=== PATIENT | male | born 1970 | race Caucasian/White ===

== ENCOUNTER 2017-03-31 12:39 | Day surgery (SDC) | payer MEDICAID ==
[~2017-03-31] VITALS: Ht 167.6 cm; Wt 109.0 kg
[~2017-03-31 12:39] MED LIST: DEXAMETHASONE SOD PHOS 4 MG/ML VIAL IVP ONE; FentaNYL CITRATE-PF 250 MCG/5 ML VIAL IVP ONE; KETOROLAC TROMETHAMINE 60 MG/2 ML VIAL IM ONE; LIDOCAINE HCL/PF 2% 5 ML VIAL IM ONE; METOCLOPRAMIDE HCL 5 MG/ML 2 ML VIAL IVP ONE; MIDAZOLAM HCL 2 MG/2 ML VIAL IVP ONE; ONDANSETRON HCL 4 MG/2 ML VIAL IVP ONE; PROPOFOL 1% 20 ML VIAL IVP ONE; SUCCINYLCHOLINE CHLORIDE 20 MG/ML 10 ML VIAL IVP ONE
[2017-03-31] MEDS ORDERED: CeFAZolin 2 GM/DEXTROSE 50 ML IV ONE ×2 (12:45→12:56)
[2017-03-31] MEDS ORDERED: RINGERS SOLUTION,LACTATED 1,000 ML IV SCH (12:45)
[2017-03-31] MEDS ORDERED: RINGERS SOLUTION,LACTATED 1,000 ML IV ONE (12:49)
[2017-03-31] MEDS ORDERED: SODIUM CL IRRIG SOLN BAG 3,000 ML IRRIG ONE (12:55)
[2017-03-31] MEDS ORDERED: BUPIVACAINE HCL/PF 0.5% 30 ML VIAL ONE (12:55)
[2017-03-31] MEDS ORDERED: 0.9% SODIUM CHLORIDE 10 ML SYRINGE IVP ONE (12:59)
[2017-03-31] MEDS ORDERED: VANCOMYCIN HCL 1 GM/VIAL ONE (13:03)
[2017-03-31] MEDS ORDERED: IBUP-2070 PO (13:10)
[2017-03-31] MEDS ORDERED: HYDR-3965 PO (13:10)
[2017-03-31] MEDS ORDERED: TRANEXAMIC ACID 1,000 MG in DEXTROSE 5%-WATER 50 ML IV ONE (13:15)
[2017-03-31 13:24] LABS: HEMATOCRIT 43.8 % (41-53); HEMOGLOBIN 14.6 g/dL (13.5-17.5); MEAN CORPUSCULAR HEMOGLOBIN 27.7 pg (26.0-34.0); MEAN CORPUSCULAR HGB CONC 33.4 G/dL (31.0-37.0); MEAN CORPUSCULAR VOLUME 83 fL (80-100); PLATELET COUNT (AUTO) 331 K/uL (150-450); RED BLOOD CELL COUNT(AUTO) 5.27 MIL/uL (4.50-5.90); RED CELL DISTRIBUTION WIDTH 13.6 % (11.5-14.5); WHITE BLOOD COUNT (AUTO) 7.7 K/uL (4.5-11.0)
[2017-03-31 13:30] LABS: INR 0.9 (0.9-1.1)
[2017-03-31 13:32] LABS: ANION GAP 9 mmol/L (8-16); CALCIUM, TOTAL 9.1 mg/dL (8.8-10.5); CARBON DIOXIDE 26 mmol/L (22-29); CHLORIDE 103 mmol/L (98-107); CREATININE 0.99 mg/dL (0.60-1.30); GLOMERULAR FILTR. RATE CALC > 60 mL/min (>60); POTASSIUM 4.2 mmol/L (3.5-5.1); SODIUM SERUM 138 mmol/L (136-145); UREA NITROGEN, BLOOD 15 mg/dL (7-18)
[2017-03-31 13:41] LABS: EOSINOPHILS % (MANUAL) 1 % (1-6); LYMPHOCYTES % (MANUAL) 27 % (22-44); RBC MORPHOLOGY COMMENT NORMAL RBC MORPH; TOTAL CELLS COUNTED 100
[2017-03-31] MEDS ORDERED: MEPERIDINE-PF 25 MG/ML SYRINGE IVP PRN (14:30)
[2017-03-31] MEDS ORDERED: FentaNYL CITRATE-PF 100 MCG/2 ML VIAL IVP PRN (14:30)
[2017-03-31] MEDS: HYDROmorphone 2 MG/ML SYRINGE IVP PRN ×3 (14:50→15:10)
[2017-03-31] MEDS ORDERED: HYDROmorphone 2 MG/ML SYRINGE ONE ×2 (14:52→16:17)
[2017-03-31] MEDS ORDERED: HYDROmorphone 2 MG/ML SYRINGE IM ONE (16:15)
[2017-03-31] MEDS ORDERED: HYDROmorphone HCL 2 MG TABLET PO ONE (16:15)
[2017-03-31] MEDS ORDERED: OXYGEN THERAPY IH SCH (20:00)
== END 2017-03-31 17:10 | disposition home or self-care (01) ==
LOC: SURGERY 12:39
PROVIDERS: ATTEND Orthopaedic Surgery
DX: S76.112A Strain of left quadriceps muscle, fascia and tendon, initial encounter (principal); Z72.89 Other problems related to lifestyle; Z79.01 Long term (current) use of anticoagulants; W11.XXXA Fall on and from ladder, initial encounter; Y93.9 Activity, unspecified; Y92.9 Unspecified place or not applicable
CPT/HCPCS: 27380; 36415; 80048; 85007; 85027; 85610; 85730; J0330; J0690 ×2; J1100; J1170; J1885; J2250; J2405; J2704; J2765; J3010; J3370; J3490 ×3; J7060; J7120